=== PATIENT | male | born 1935 | race Caucasian/White ===

== ENCOUNTER 2023-09-02 08:50 | Inpatient (IN) | payer MEDICARE, BC ==
[~2023-09-02] VITALS: Ht 170.2 cm; Wt 69.7 kg
[2023-09-02 11:43] LABS: BILIRUBIN,URINE NEGATIVE (Neg); CLARITY,URINE SLIGHTLY CLOUDY (Clear); COLOR,URINE YELLOW (Yellow); GLUCOSE, URINE NEGATIVE (Neg); KETONES,URINE 15 mg/dl (Neg); LEUKOCYTE ESTERASE ,URINE NEGATIVE (Neg); NITRITES, URINE NEGATIVE (Neg); OCCULT BLOOD,URINE MODERATE (Neg); PH,URINE 5.5 (4.8-8.0); PROTEIN,URINE 100 mg/dl (Neg); UROBILINOGEN,URINE 0.2 E.U/dL (0.2-1.0)
[2023-09-02 11:47] LABS: UA COLLECTION TYPE VOIDED
[2023-09-02 11:54] LABS: MUCUS STRANDS MODERATE /LPF (Neg); SQUAMOUS EPITHELIAL CELL,UR MANY /LPF (FEW)
[2023-09-02 11:56] LABS: BACTERIA,URINE FEW /HPF (Neg); RBC,URINE 0-2 /HPF (0-2); WBC,URINE 0-4 /HPF (0-4)
[2023-09-02 12:06] LABS: BASOPHILS % (AUTO) 0.1 % (0-1); EOSINOPHILS % (AUTO) 0 % (0-6); HEMATOCRIT 43.1 % (42.0-52.0); HEMOGLOBIN 14.6 g/dl (14.0-17.9); LYMPHOCYTES % (AUTO) 5.7 % (21-51); MEAN CORPUSCULAR HEMOGLOBIN 32.1 PG (27.0-31.0); MEAN CORPUSCULAR VOLUME 94.6 FL (78-98); MEAN PLATELET VOLUME 7.7 FL (7.4-10.4); MONOCYTES # (AUTO) 2.4 X10'3 (0-0.9); MONOCYTES % (AUTO) 14.1 % (2-12); NEUTROPHILS # (AUTO) 13.6 X10'3 (1.8-7.7); NEUTROPHILS % (AUTO) 80.1 % (42-75); PLATELET COUNT 245 X10'3 (140-440); RED BLOOD COUNT 4.55 X10'6 (4.70-6.10); RED CELL DISTRIBUTION WIDTH 13.6 % (11.5-14.5)
[2023-09-02] MEDS: CefTRIAXone 2gm/D5W 50ml BAG 50 ML IV ONE (12:30)
[2023-09-02 13:11] LABS: ALBUMIN 2.9 G/DL (3.4-5.0); ANION GAP 8 (8-16); BLOOD UREA NITROGEN 18 MG/DL (7-18); BUN/CREATININE RATIO 16.5 (10.0-20.0); CALCIUM 9.1 MG/DL (8.5-10.1); CHLORIDE 100 MMOL/L (99-107); CREATININE 1.09 MG/DL (0.60-1.10); GLUCOSE 133 MG/DL (70-104); POTASSIUM 4.1 MMOL/L (3.5-5.1); SODIUM 135 MMOL/L (135-145); TOTAL CARBON DIOXIDE 27.4 MMOL/L (24-32); eCRCL 45 ML/MIN; eGFR 64 ML/MIN
[2023-09-02] MEDS ORDERED: potassium Cl 40MEQ/1/2NS 520ml 520 ML IV PRN (13:20)
[2023-09-02] MEDS ORDERED: morphine 2 MG/ML inj. syringe IV PRN (13:20)
[2023-09-02] MEDS ORDERED: HYDROcodone/acetaminophen 5mg/325mg tablet PO PRN (13:20)
[2023-09-02] MEDS ORDERED: potassium Cl 20 mEq SR tablet PO PRN ×2 (13:20)
[2023-09-02] MEDS: enoxaparin 40mg/0.4ml syringe SUBCUT SCH (13:20)
[2023-09-02] MEDS ORDERED: magnesium 2GM in 50ml NS 50 ML IV PRN (13:20)
[2023-09-02] MEDS ORDERED: acetaminophen 325mg tablet PO PRN ×2 (13:20)
[2023-09-02] MEDS ORDERED: ondansetron/PF 4mg/2ml inj IV PRN (13:20)
[2023-09-02] MEDS ORDERED: magnesium Cl slow-release 64mg tablet PO PRN (13:20)
[2023-09-02] MEDS ORDERED: magnesium 4gm in 100ml NS 100 ML IV PRN (13:20)
[2023-09-02] MEDS: azithromycin/NS 500mg/250ml 250 ML IV SCH (13:30)
[2023-09-02] MEDS: normal saline 1000ml 1,000 ML IV SCH (15:58)
[2023-09-02] MEDS ORDERED: FLO0.4C (16:10)
[2023-09-02] MEDS ORDERED: ROSU5TAB12 PO (16:10)
[2023-09-02] MEDS ORDERED: CLOP75TA34 PO (16:10)
[2023-09-02] MEDS ORDERED: LATA2.5D14 EACHEYE (16:10)
[2023-09-02] MEDS ORDERED: KEN0.1O (16:10)
[2023-09-02] MEDS ORDERED: TERB250T89 PO (16:10)
[2023-09-02] MEDS ORDERED: FAMO40TA58 PO (16:10)
[2023-09-02] MEDS ORDERED: FLUC200T93 (16:10)
[2023-09-02 17:15] VITALS: BP 152/53; PULSE 91; RESP 25; TEMP 99.6; O2SAT 95
[2023-09-02] MEDS: clopidogrel 75mg tablet PO SCH (17:40)
[2023-09-02 19:00] VITALS: BP 128/59; PULSE 92; RESP 22; TEMP 98.6; O2SAT 92
[2023-09-02 19:30] VITALS: O2SAT 88
[2023-09-02 19:35] VITALS: O2SAT 94
[2023-09-02] MEDS: tamsulosin 0.4mg capsule PO SCH (20:26)
[2023-09-02] MEDS: latanoprost 0.005% 2.5ml ophthalmic drops EACHEYE SCH (20:26)
[2023-09-02] MEDS: benzonatate 100mg capsule PO PRN (20:26)
[2023-09-02] MEDS: famotidine 20mg tablet PO SCH (20:26)
[2023-09-02 22:00] VITALS: BP 111/48; PULSE 90; RESP 20; TEMP 99.1; O2SAT 95
[2023-09-03] VITALS (7 sets, daily range): BP systolic 102–125; BP diastolic 41–89; PULSE 80–89; RESP 16–24; TEMP 97.6–99.9; O2SAT 92–96
[2023-09-03 06:30] LABS: BASOPHILS % (AUTO) 0.1 % (0-1); EOSINOPHILS % (AUTO) 0.2 % (0-6); HEMATOCRIT 38.2 % (42.0-52.0); LYMPHOCYTES # (AUTO) 1.2 X10'3 (1.1-4.8); LYMPHOCYTES % (AUTO) 8.6 % (21-51); MEAN CORPUSCULAR HEMOGLOBIN 32.1 PG (27.0-31.0); MEAN CORPUSCULAR HGB CONC 33.9 g/dL (33.0-36.5); MEAN CORPUSCULAR VOLUME 94.5 FL (78-98); MEAN PLATELET VOLUME 7.3 FL (7.4-10.4); MONOCYTES # (AUTO) 1.9 X10'3 (0-0.9); MONOCYTES % (AUTO) 13.4 % (2-12); NEUTROPHILS # (AUTO) 11.1 X10'3 (1.8-7.7); NEUTROPHILS % (AUTO) 77.7 % (42-75); PLATELET COUNT 237 X10'3 (140-440); RED BLOOD COUNT 4.04 X10'6 (4.70-6.10); RED CELL DISTRIBUTION WIDTH 13.3 % (11.5-14.5); WHITE BLOOD COUNT 14.3 X10'3 (4.5-11.0)
[2023-09-03 06:45] LABS: ALANINE AMINOTRANSFERASE 26 U/L (12-78); ALBUMIN 2.1 G/DL (3.4-5.0); ALBUMIN/GLOBULIN RATIO 0.5 (1.1-1.5); ALKALINE PHOSPHATASE 56 IU/L (46-116); ANION GAP 6 (8-16); ASPARTATE AMINO TRANSFERASE 52 U/L (10-37); BILIRUBIN,TOTAL 0.5 MG/DL (0.1-1.0); BLOOD UREA NITROGEN 15 MG/DL (7-18); CALCIUM 8.5 MG/DL (8.5-10.1); CHLORIDE 103 MMOL/L (99-107); CREATININE 0.94 MG/DL (0.60-1.10); GLUCOSE 104 MG/DL (70-104); SODIUM 137 MMOL/L (135-145); TOTAL CARBON DIOXIDE 27.7 MMOL/L (24-32); TOTAL PROTEIN 6.2 G/DL (6.4-8.2); eCRCL 53 ML/MIN; eGFR 76 ML/MIN
[2023-09-03] MEDS: CefTRIAXone 2gm/D5W 50ml BAG 50 ML IV SCH (08:41)
[2023-09-03] MEDS: atorvastatin 20mg tablet PO SCH (08:46)
[2023-09-04 02:00] VITALS: BP 128/58; PULSE 84; RESP 22; TEMP 97.9; O2SAT 92
[2023-09-04 06:00] VITALS: BP 109/51; PULSE 77; RESP 20; TEMP 98.5; O2SAT 93
[2023-09-04 06:14] LABS: BASOPHILS % (AUTO) 0.2 % (0-1); EOSINOPHILS # (AUTO) 0.1 X10'3 (0-0.9); EOSINOPHILS % (AUTO) 0.5 % (0-6); HEMATOCRIT 37.5 % (42.0-52.0); HEMOGLOBIN 12.5 g/dl (14.0-17.9); LYMPHOCYTES # (AUTO) 1.1 X10'3 (1.1-4.8); LYMPHOCYTES % (AUTO) 9.1 % (21-51); MEAN CORPUSCULAR HEMOGLOBIN 31.7 PG (27.0-31.0); MEAN CORPUSCULAR HGB CONC 33.4 g/dL (33.0-36.5); MEAN CORPUSCULAR VOLUME 94.9 FL (78-98); MEAN PLATELET VOLUME 7.7 FL (7.4-10.4); MONOCYTES # (AUTO) 1.7 X10'3 (0-0.9); MONOCYTES % (AUTO) 13.7 % (2-12); NEUTROPHILS # (AUTO) 9.6 X10'3 (1.8-7.7); NEUTROPHILS % (AUTO) 76.5 % (42-75); PLATELET COUNT 252 X10'3 (140-440); RED BLOOD COUNT 3.95 X10'6 (4.70-6.10); RED CELL DISTRIBUTION WIDTH 13.4 % (11.5-14.5); WHITE BLOOD COUNT 12.6 X10'3 (4.5-11.0)
[2023-09-04 06:26] LABS: ALANINE AMINOTRANSFERASE 34 U/L (12-78); ALBUMIN/GLOBULIN RATIO 0.5 (1.1-1.5); ALKALINE PHOSPHATASE 68 IU/L (46-116); ANION GAP 5 (8-16); ASPARTATE AMINO TRANSFERASE 49 U/L (10-37); BILIRUBIN,TOTAL 0.5 MG/DL (0.1-1.0); BLOOD UREA NITROGEN 16 MG/DL (7-18); BUN/CREATININE RATIO 15.7 (10.0-20.0); CALCIUM 7.9 MG/DL (8.5-10.1); CHLORIDE 100 MMOL/L (99-107); CREATININE 1.02 MG/DL (0.60-1.10); GLUCOSE 97 MG/DL (70-104); POTASSIUM 3.9 MMOL/L (3.5-5.1); SODIUM 134 MMOL/L (135-145); TOTAL CARBON DIOXIDE 29.4 MMOL/L (24-32); eCRCL 49 ML/MIN; eGFR 69 ML/MIN
[2023-09-04] MEDS ORDERED: LEVO-65 PO (10:40)
[2023-09-04 12:00] VITALS: BP 112/56; PULSE 69; RESP 18; TEMP 98.2; O2SAT 94
== END 2023-09-04 13:31 | disposition home or self-care (01) | DRG 871 ==
LOC: ER 08:51 → ED HOLD 13:22 → UNDOADMIN 13:22 → ED HOLD 13:42 → PCU 3S 16:50 → SUR 3N 09-04 01:56
PROVIDERS: ADMIT Internal Medicine; ATTEND Internal Medicine
DX: A41.9 Sepsis, unspecified organism (principal); J18.9 Pneumonia, unspecified organism; N28.9 Disorder of kidney and ureter, unspecified; Z66 Do not resuscitate; Z20.822 Contact with and (suspected) exposure to COVID-19
CPT/HCPCS: 36415; 71045; 80048; 80053; 81001; 83605; 84145; 85025; 87040; 87081; 87502; 87503; 87811; 93005; 99285; A4615; G0378; J0456; J0696; J1650; J7030; J7040

== ENCOUNTER 2023-09-13 12:07 | Emergency (ER) | payer MEDICARE, BC ==
[~2023-09-13] VITALS: Ht 170.2 cm; Wt 66.5 kg
[~2023-09-13 12:07] MED LIST: CLOP75TA34 PO; FAMO40TA58 PO; FLO0.4C; LATA2.5D14 EACHEYE; ROSU5TAB12 PO
[2023-09-13 12:16] VITALS: TEMP 98.2
[2023-09-13 12:48] LABS: BILIRUBIN,URINE NEGATIVE (Neg); CLARITY,URINE CLEAR (Clear); COLOR,URINE YELLOW (Yellow); GLUCOSE, URINE NEGATIVE (Neg); KETONES,URINE NEGATIVE (Neg); LEUKOCYTE ESTERASE ,URINE NEGATIVE (Neg); NITRITES, URINE NEGATIVE (Neg); OCCULT BLOOD,URINE NEGATIVE (Neg); PH,URINE 6.5 (4.8-8.0); PROTEIN,URINE NEGATIVE (Neg); UROBILINOGEN,URINE 0.2 E.U/dL (0.2-1.0)
[2023-09-13 12:53] LABS: UA COLLECTION TYPE CLN CATCH MIDSTREAM
[2023-09-13 13:51] LABS: BASOPHILS % (AUTO) 0.7 % (0-1); EOSINOPHILS % (AUTO) 0.7 % (0-6); HEMATOCRIT 42.9 % (42.0-52.0); HEMOGLOBIN 14.2 g/dl (14.0-17.9); LYMPHOCYTES # (AUTO) 0.9 X10'3 (1.1-4.8); MEAN CORPUSCULAR HEMOGLOBIN 31.4 PG (27.0-31.0); MEAN CORPUSCULAR VOLUME 95.1 FL (78-98); MEAN PLATELET VOLUME 6.8 FL (7.4-10.4); MONOCYTES # (AUTO) 0.9 X10'3 (0-0.9); MONOCYTES % (AUTO) 17.2 % (2-12); NEUTROPHILS # (AUTO) 3.4 X10'3 (1.8-7.7); NEUTROPHILS % (AUTO) 64.4 % (42-75); PLATELET COUNT 329 X10'3 (140-440); RED BLOOD COUNT 4.51 X10'6 (4.70-6.10); RED CELL DISTRIBUTION WIDTH 13.8 % (11.5-14.5); WHITE BLOOD COUNT 5.4 X10'3 (4.5-11.0)
[2023-09-13 14:08] LABS: ALANINE AMINOTRANSFERASE 27 U/L (12-78); ALBUMIN 2.8 G/DL (3.4-5.0); ALBUMIN/GLOBULIN RATIO 0.6 (1.1-1.5); ALKALINE PHOSPHATASE 65 IU/L (46-116); ANION GAP 6 (8-16); ASPARTATE AMINO TRANSFERASE 33 U/L (10-37); BILIRUBIN,TOTAL 0.2 MG/DL (0.1-1.0); BLOOD UREA NITROGEN 14 MG/DL (7-18); BUN/CREATININE RATIO 15.6 (10.0-20.0); CALCIUM 8.6 MG/DL (8.5-10.1); CHLORIDE 103 MMOL/L (99-107); GLUCOSE 101 MG/DL (70-104); POTASSIUM 4.2 MMOL/L (3.5-5.1); SODIUM 139 MMOL/L (135-145); TOTAL CARBON DIOXIDE 30.2 MMOL/L (24-32); TOTAL PROTEIN 7.2 G/DL (6.4-8.2); eCRCL 55 ML/MIN; eGFR 80 ML/MIN
[2023-09-13 14:15] LABS: BILIRUBIN,DIRECT 0.1 MG/DL (0-0.3); PRO BRAIN NATRIURETIC PEPTIDE 383 PG/ML (0-450)
[2023-09-13 14:47] LABS: ANISOCYTOSIS 1+; PLATELET ESTIMATE NORMAL; TOTAL CELLS COUNTED 100
[2023-09-13] MEDS: ipratropium/albuterol 3ml nebule NEB ONE (15:34)
[2023-09-13 15:37] VITALS: PULSE 85; RESP 18; O2SAT 96
[2023-09-13] MEDS ORDERED: ALBU18HF2 INH (15:40)
[2023-09-13] MEDS ORDERED: GUAI600T45 PO (15:40)
[2023-09-13] MEDS ORDERED: AMOX-117 PO (15:40)
[2023-09-13] MEDS ORDERED: PRED20TA PO (15:40)
[2023-09-13] MEDS ORDERED: AZIT250T29 PO (15:40)
[2023-09-13] MEDS ORDERED: BENZ-38 PO (15:40)
[2023-09-13 15:43] VITALS: PULSE 99; RESP 18; O2SAT 99
[2023-09-13] MEDS: predniSONE 20 mg tablet PO ONE (15:46)
[2023-09-13 16:22] VITALS: BP 165/79; PULSE 93; RESP 18; O2SAT 95
== END 2023-09-13 16:22 | disposition home or self-care (01) ==
LOC: ER 12:08
DX: J18.9 Pneumonia, unspecified organism (principal)
CPT/HCPCS: 36415; 71046; 80048; 80076; 81003; 83605; 83880; 84145; 84484; 85007; 85025; 87040; 93005; 94640; 99285; J7512; 94760

== ENCOUNTER → 2024-01-09 | Emergency (ER) | payer MEDICARE, BC ==
[~2024-01-09] VITALS: Ht 170.2 cm; Wt 68.9 kg
[~2024-01-09] MED LIST changes: +ALBU18HF2 INH; +CEFD300C3 PO; +GUAI600T45 PO; -ROSU5TAB12 PO; +ROSU5TAB43 PO
[2024-01-09 11:50] LABS: ALBUMIN 3.3 G/DL (3.4-5.0); ANION GAP 10 (8-16); BLOOD UREA NITROGEN 21 MG/DL (7-18); BUN/CREATININE RATIO 21.6 (10.0-20.0); CHLORIDE 103 MMOL/L (99-107); CREATININE 0.97 MG/DL (0.60-1.10); GLUCOSE 112 MG/DL (70-104); SODIUM 136 MMOL/L (135-145); TOTAL CARBON DIOXIDE 23.5 MMOL/L (24-32); eCRCL 50 ML/MIN; eGFR 73 ML/MIN
[2024-01-09 11:52] LABS: BASOPHILS % (AUTO) 0.1 % (0-1); EOSINOPHILS % (AUTO) 0 % (0-6); HEMATOCRIT 44.5 % (42.0-52.0); HEMOGLOBIN 14.8 g/dl (14.0-17.9); LYMPHOCYTES # (AUTO) 1.1 X10'3 (1.1-4.8); LYMPHOCYTES % (AUTO) 5.7 % (21-51); MEAN CORPUSCULAR HEMOGLOBIN 31.8 PG (27.0-31.0); MEAN CORPUSCULAR HGB CONC 33.2 g/dL (33.0-36.5); MEAN CORPUSCULAR VOLUME 95.7 FL (78-98); MEAN PLATELET VOLUME 7.9 FL (7.4-10.4); MONOCYTES # (AUTO) 2.1 X10'3 (0-0.9); MONOCYTES % (AUTO) 10.7 % (2-12); NEUTROPHILS # (AUTO) 16.6 X10'3 (1.8-7.7); NEUTROPHILS % (AUTO) 83.5 % (42-75); PLATELET COUNT 197 X10'3 (140-440); RED BLOOD COUNT 4.65 X10'6 (4.70-6.10); RED CELL DISTRIBUTION WIDTH 13.6 % (11.5-14.5); WHITE BLOOD COUNT 19.9 X10'3 (4.5-11.0)
[2024-01-09 12:17] LABS: BILIRUBIN,URINE NEGATIVE (Neg); CLARITY,URINE CLOUDY (Clear); COLOR,URINE YELLOW (Yellow); GLUCOSE, URINE NEGATIVE (Neg); KETONES,URINE NEGATIVE (Neg); LEUKOCYTE ESTERASE ,URINE MODERATE (Neg); NITRITES, URINE POSITIVE (Neg); OCCULT BLOOD,URINE TRACE-INTACT (Neg); PH,URINE 8.5 (4.8-8.0); PROTEIN,URINE 100 mg/dl (Neg); UROBILINOGEN,URINE 0.2 E.U/dL (0.2-1.0)
[2024-01-09 13:01] LABS: UA COLLECTION TYPE CLN CATCH MIDSTREAM
[2024-01-09 13:05] LABS: SQUAMOUS EPITHELIAL CELL,UR FEW /LPF (FEW)
[2024-01-09 13:06] LABS: BACTERIA,URINE 4+ /HPF (Neg); TRIPLE PHOSPHATE CRYST 1+ /HPF (NEGATIVE)
[2024-01-09 13:07] LABS: RBC,URINE 0-2 /HPF (0-2); WBC,URINE 50-100 /HPF (0-4)
[2024-01-09] MEDS: CefTRIAXone 2gm/D5W 50ml BAG 50 ML IV ONE (13:45)
[2024-01-09] MEDS: FOSFOMYCIN TROMETHAMINE 3 GM PACKET PO ONE (13:55)
[2024-01-09 14:29] VITALS: BP 122/64; PULSE 88; RESP 16; TEMP 97.9; O2SAT 98
== END | disposition home or self-care (01) ==
LOC: ER 10:26
DX: N39.0 Urinary tract infection, site not specified (principal); Z79.899 Other long term (current) drug therapy; Z79.2 Long term (current) use of antibiotics
CPT/HCPCS: 36415; 80048; 81001; 85025; 87077; 87088; 87186; 93005; 96365; 99284; J0696